=== PATIENT | male | born 1975 ===

== ENCOUNTER 2019-02-07 11:46 | Emergency (ER) | payer OTHER ==
[2019-02-07 11:51] VITALS: BP 170/117; PULSE 93; RESP 18; TEMP 98.1; O2SAT 100
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
== END 2019-02-07 14:27 | disposition home or self-care (01) ==
LOC: C.ER 11:46
DX: S33.5XXA Sprain of ligaments of lumbar spine, initial encounter (principal); S53.401A Unspecified sprain of right elbow, initial encounter; V43.62XA Car passenger injured in collision with other type car in traffic accident, initial encounter